=== PATIENT | male | born 1995 | race Caucasian/White ===

== ENCOUNTER 2022-10-29 07:48 | Emergency (ER) | payer MEDICAID ==
[~2022-10-29] VITALS: Ht 167.6 cm; Wt 77.3 kg
[2022-10-29 07:55] VITALS: BP 138/72
[2022-10-29 08:30] LABS: COVID AG,FIA SOURCE NASAL SWAB
[2022-10-29 09:26] LABS: INFLUENZA TYPE A NEGATIVE FOR TYPE A (NEGATIVE); INFLUENZA TYPE B NEGATIVE FOR TYPE B (NEGATIVE)
[2022-10-29 09:27] LABS: RAPID GROUP A STREP NEGATIVE (NEGATIVE)
== END 2022-10-29 10:31 | disposition still patient (30) ==
LOC: EMS 07:53
DX: R07.0 Pain in throat (principal); Z53.21 Procedure and treatment not carried out due to patient leaving prior to being seen by health care provider
CPT/HCPCS: 87430; 87804; 99281; Z7502